=== PATIENT | female | born 1980 | race Caucasian/White ===

== ENCOUNTER 2017-11-19 00:46 | Emergency (ER) | payer BC ==
[~2017-11-19] VITALS: Ht 167.6 cm; Wt 59.9 kg
[~2017-11-19 00:46] MED LIST: DIPH2%T PO; ENOX40P SQ; EPIP0.3I IM; HYDR-3534 PO; IBUP600 PO; PERC5TAB12 PO; PERI8.6T PO; PREN1TAB30 PO
[2017-11-19 00:50] VITALS: BP 127/81; PULSE 75; RESP 18; TEMP 97.4; O2SAT 98
[2017-11-19 01:13] LABS: BILIRUBIN, URINE NEG (NEG); BLOOD, URINE LARGE (NEG); GLUCOSE,URINE NEG (NEG); KETONE, URINE NEG (NEG); NITRITE,URINE NEG (NEG); URINE COLOR YELLOW (YELLW/STRAW); URINE LEUKOCYTE ESTERASE MOD (NEG)
[2017-11-19 01:34] LABS: BACTERIA, URINE MOD /hpf; SQUAMOUS EPITHELIAL CELL URINE 0-5 /hpf (0-5); WBC, URINE 100-200 /hpf (0-5)
[2017-11-19] MEDS ORDERED: FEXO1TAB97 PO (01:53)
[2017-11-19] MEDS ORDERED: MULT-11 PO (01:53)
[2017-11-19] MEDS ORDERED: PHEN0.4T PO (04:26)
[2017-11-19] MEDS ORDERED: MACR100C2 PO (04:26)
--- NOTE | 2017-11-19 04:28 | PD ---
HPI Chief Complaint: Flank/Kidney Pain Time Seen by Provider: 04:18 Travel History International Travel<30 days: No Contact w/Intl Traveler<30days: No Traveled to known affect area: No History of Present Illness HPI The patient is a 37-year-old female that complains of mostly right back pain and some uncomfortableness when she urinates. She also has some slight frequency of urination. She denies any fever, nausea, vomiting or diarrhea. Her discomfort is a 5/10 and she describes it as an occasional throbbing pain. This is been going on for 2 days. She has never had a urinary tract infection before. PFSH Past Medical History Blood Disorders: Yes (Factor V deficiency) Diminished Hearing: No ?: Not LMP: PT HAS IUD Past Surgical History Section: Yes Social History Alcohol Use: Yes (occasionally) Tobacco Use: No Substance Use: No Allergies-Medications (Allergen,Severity, Reaction): Coded Allergies: bee venom protein (honey bee) (Unverified Allergy, Severe, 01/17/17) fire ant (Unverified Allergy, Severe, 01/17/17) Reported Meds & Prescriptions Reported Meds & Active Scripts Active Epipen (Epinephrine HCl) 0.3 Mg Inj 0.3 Mg IM DIRECTED GIVE IM IN THIGH, MAY REPEAT IF NEEDED Reported [employer] (Multiple Vitamins W/ Minerals) 18 Mg Iron-400 Mcg-80 Mcg Tab 1 Tab PO DAILY Kenna-D 24 Hour Allergy (Fexofenadine-Pseudoephedrine ER 24 HR) 180-240 Adrianne 1 Tab PO DAILY Review of Systems Except as stated in HPI: all other systems reviewed are Neg Physical Exam Narrative GENERAL: Well-nourished, well-developed patient in minimal apparent distress with her right flank pain. Her vital signs are normal. SKIN: Focused skin assessment warm/dry. HEAD: Normocephalic. EYES: No scleral icterus. No injection or drainage. NECK: Supple, trachea midline. No JVD or lymphadenopathy. CARDIOVASCULAR: Regular rate and rhythm without murmurs, gallops, or rubs. RESPIRATORY: Breath sounds equal bilaterally. No accessory muscle use. GASTROINTESTINAL: Abdomen soft, with tenderness in the right flank to direct palpation, nondistended. No guarding or rebound is present. MUSCULOSKELETAL: No cyanosis, or edema. BACK: Nontender without obvious deformity. No CVA tenderness. Data Data Last Documented VS Vital Signs Date Time Temp Pulse Resp B/P (MAP) Pulse Ox O2 Delivery O2 Flow Rate FiO2 11/19/17 00:50 97.4 75 18 127/81 (96) 98 Orders Orders Urinalysis - C+S If Indicated (11/19/17 00:55) Ed Urine Pregnancytest Poc (11/19/17 00:55) Urine Culture (11/19/17 00:56) Nitrofurantoin Monohyd Macrocr (Macrobid (11/19/17 04:30) Labs Laboratory Tests Test 11/19/17 00:56 Urine Color YELLOW Urine Turbidity CLEAR Urine pH 6.0 Urine Specific [place] 1.020 Urine Protein 100 mg/dL Urine Glucose (UA) NEG mg/dL Urine Ketones NEG mg/dL Urine Occult Blood LARGE Urine Nitrite NEG Urine Bilirubin NEG Urine Urobilinogen 0.2 MG/DL Urine Leukocyte Esterase MOD Urine RBC 4-9 /hpf Urine WBC 100-200 /hpf Urine Squamous Epithelial Cells 0-5 /hpf Urine Bacteria MOD /hpf Microscopic Urinalysis Comment CULTURE INDICATED MDM Medical Decision Making Medical Screen Exam Complete: Yes Emergency Medical Condition: Yes Medical Record Reviewed: Yes Interpretation(s) The urine test is negative. Differential Diagnosis Cystitis, pyelonephritis, herpes vaginitis-unlikely Narrative Course The patient likely has both a cystitis and pyelonephritis. This is her first urinary tract infection. She will be given prescriptions for Pyridium and Macrobid. Diagnosis Primary Impression: Cystitis Additional Impression: Pyelonephritis Additional Instructions: It is necessary to increase liquid intake with the urine infection. It is desirable to have a good urine flow through your kidneys to fight the urine infection. Also, when going to the bathroom wipe from front to back and try to urinate after sexual intercourse. These actions may prevent a urine infection. Follow-up with your primary care physician next week. Med/Other Pt SpecificInfo: Prescription(s) given Scripts Nitrofurantoin Monohydrate Macrocrystals (Macrobid) 100 Mg Cap 100 MG PO BID for Infection for 10 Days, #20 CAP 0 Refills Prov: Rafael Rayo MD 11/19/17 Phenazopyridine (Pyridium) 100 Mg Tab 100 MG PO Q8H Y for DYSURIA, #12 TAB 0 Refills Prov: Rafael Rayo MD 11/19/17 Disposition: 01 DISCHARGE HOME Condition: Stable Rafael Rayo MD Nov 19, 2017 04:28
[2017-11-19] MEDS ORDERED: NITROFURANTOIN MONOHYD MACROCR 100 MG CAP PO ONE (04:30)
[2017-11-19 04:41] VITALS: BP 118/64
[2017-11-19] MEDS ORDERED: PHENAZOPYRIDINE HCL 100 MG TAB PO ONE (04:45)
== END 2017-11-19 04:43 | disposition home or self-care (01) ==
LOC: PHED 00:46
DX: N30.90 Cystitis, unspecified without hematuria (principal); N12 Tubulo-interstitial nephritis, not specified as acute or chronic; B96.20 Unspecified Escherichia coli [E. coli] as the cause of diseases classified elsewhere; R30.0 Dysuria
CPT/HCPCS: 81001; 84703; 87077; 87086; 87186; 99283